=== PATIENT | female | born 1985 | race Caucasian/White ===

== ENCOUNTER 2025-05-14 21:03 | Emergency (ER) | payer OTHER, SELFPAY ==
[2025-05-14 21:07] VITALS: BP 188/103
[2025-05-14 23:15] LABS: Hematocrit 42.6 % (37.0-47.0); Hemoglobin 13.7 g/dL (12.0-16.0); Mean Corp Hgb Conc. 32.2 g/dL (33.0-37.0); Mean Corpuscular Volume 85.0 fL (81.0-99.0); Nucleated Red Blood Cells % 0 %; Platelet Count 299 10^3/uL (130-400); Red Cell Dist. Width 13.4 % (11.5-14.5)
[2025-05-14 23:33] LABS: Blood Urea Nitrogen 9 mg/dl (7-17); Calcium 9.6 mg/dl (8.4-10.2); Carbon Dioxide 21 mmol/L (22-30); Chloride 103 mmol/L (98-107); Glucose 79 mg/dl (70-99); Potassium 3.3 mmol/L (3.5-5.1); Sodium 136 mmol/L (135-145); eGFR > 60.00
[2025-05-14 23:42] VITALS: BMI 34.2
[2025-05-14 23:42] LABS: HCG, Serum Qualitative Screen Negative
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
[2025-05-15] MEDS: TORADOL 15 MG IV (01:15)
[2025-05-15] MEDS: KCL 40 MEQ PO (01:15)
[2025-05-15 02:02] VITALS: BP 139/92
== END 2025-05-15 02:28 | disposition home or self-care (01) ==
LOC: EMR 21:03
PROVIDERS: Emergency Medicine; EMERGENCY PHYSICIAN Emergency Medicine
DX: L08.9 Local infection of the skin and subcutaneous tissue, unspecified (principal); S60.011A Contusion of right thumb without damage to nail, initial encounter; W22.8XXA Striking against or struck by other objects, initial encounter; G40.909 Epilepsy, unspecified, not intractable, without status epilepticus
CPT/HCPCS: 99284; 96374; 73130; 80048; 84703; 85025

== ENCOUNTER → 2025-05-25 09:24 | Outpatient (REF) | payer BC, SELFPAY | LOC: MRI 09:24 | PROVIDERS: ATTENDING PHYSICIAN Student in an Organized Health Care Education/Training Program | DX: M79.644 Pain in right finger(s) (principal) | CPT/HCPCS: 73220 ==